=== PATIENT | female | born 1995 ===

== ENCOUNTER 2017-07-08 20:50 | Emergency (ER) | payer MEDICAID ==
[2017-07-08 20:58] VITALS: TEMP 98.4
--- NOTE | 2017-07-08 21:53 | ED PDOC ---
HPI: Psych/Substance Abuse Time Seen by Provider: 07/08/17 21:15 Chief Complaint (Nursing): Flu-like Symptoms Chief Complaint (Provider): Psychiatric Evaluation (Anxiety/Panic Attack) History Per: Patient, Family (Mother) History/Exam Limitations: no limitations Onset/Duration Of Symptoms: Hrs Current Symptoms Are (Timing): Still Present Associated Symptoms: Anxiety Additional Complaint(s): 21 year old female presents to the ED complaining of an anxiety/panic attack prior to arrival. Patient states she was preparing dinner tonight when she felt a sudden onset of heat throughout her body, shortness of breath, and chest/ throat tightness. Patient reports she felt as if she couldn't breath. Patient also reports she has been having panic attacks more frequently at about 4 times a week, that now are interfering with her sleeping. Saw PMD earlier in the year for same and was prescribed medication for anxiety. Patient's mother never filled the prescription. Patient's mother also states an extensive family history of anxiety. Patient states she is the middle of switching jobs and finishing up schooling, which has been causing her some stress. Patient reports she took Tylenol 500 mg prior to arrival. Most symptoms have resolved, but patient states she still feels "shaky". PMD: Dr. Hammond LNMP: 07/02/2017 Past Medical History Reviewed: Historical Data, Nursing Documentation, Vital Signs Vital Signs: Last Vital Signs Temp 98.4 F 07/08/17 20:55 Pulse 89 07/08/17 20:55 Resp 16 07/08/17 20:55 BP 156/89 H 07/08/17 20:55 Pulse Ox 98 07/08/17 20:55 - Medical History PMH: Anxiety - Surgical History Surgical History: No Surg Hx - Family History Family History: States: Unknown Family Hx - Home Medications Home Medications: Ambulatory Orders Medication Instructions Recorded Nitrofurantoin Macrocrystals 100 mg PO BID #10 cap 04/26/16 [Macrobid] - Allergies Allergies/Adverse Reactions: Allergies Allergy/AdvReac Type Severity Reaction Status Date / Time No Known Allergies Allergy Verified 04/26/16 13:47 Review of Systems ROS Statement: Except As Marked, All Systems Reviewed And Found Negative Respiratory: Positive for: Shortness of Breath, Other (chest tightness, dyspnea ) Psych: Positive for: Anxiety Physical Exam - Reviewed Nursing Documentation Reviewed: Yes Vital Signs Reviewed: Yes - Physical Exam Comments: GENERAL APPEARANCE: Patient is awake, alert, oriented x 3, anxious appearing, tearful. SKIN: Warm, dry; (-) cyanosis HEAD: (-) scalp swelling, (-) scalp tenderness. EYES: (-) conjunctival pallor, (-) scleral icterus, (-) nystagmus. ENMT: Mucous membranes moist. Airway patent: (-) stridor. Pharynx: clear (-) swelling. Uvula midline. (-) stridor (-) drooling. NECK: Supple, FROM (-) tenderness, (-) stiffness, (-) lymphadenopathy. CHEST AND RESPIRATORY: (-) rales, (-) rhonchi, (-) wheezes; breath sounds equal. Speaking in full sentences, respirations even and nonlabored. ABDOMEN: Soft, (-) distention, (-) tenderness, (-) guarding. NEURO AND PSYCH: Mental status as above. Affect: Calm and cooperative. epic professional: Intact. Pupils equal and reactive; EOMI; (-) facial asymmetry; tongue and uvula midline. Strength and sensation symmetric. - ECG O2 Sat by Pulse Oximetry: 98 (RA) Pulse Ox Interpretation: Normal Medical Decision Making Medical Decision Making: Clinical Impression: Panic Attack Plan: Time: 2150 Patient offered to speak with crisis. Patient declined and states she will speak to PMD, Dr. Hammond, because he is aware of the problem already. -Xanax PO -Rapid Strep (requested by mother) -Influenza (requested by mother) -Re-evaluation 2309 On re-evaluation, patient reports improvement of symptoms and resolution of presenting symptoms. On exam, patient remains AAOx3, in no acute distress. On exam, neck is supple, lungs CTA, cardiac RRR, abdomen is soft and non-tender, neuro exam shows no focal findings. Repeat BP:125/70. Repeat HR: 68. Diagnostic results d/w the patient in great detail. Dx of panic attack, anxiety d/w the patient. Based on history, exam and diagnostic results plan will be for outpatient follow up. Advised to follow up with primary care physician in 1-2 days without fail. Advised to take medication as prescribed. Return to the emergency room at any time for any new or worsening symptoms. Patient states she fully agrees with and understands discharge instructions. States that she agrees with the plan and disposition. Verbalized and repeated discharge instructions and plan. I have given the patient opportunity to ask any additional questions. Scribe Attestation: Documented by Sharon Russ, acting as a scribe for Martina Reyes PA-C. Provider Scribe Attestation: All medical record entries made by the Scribe were at my direction and personally dictated by me. I have reviewed the chart and agree that the record accurately reflects my personal performance of the history, physical exam, medical decision making, and the department course for this patient. I have also personally directed, reviewed, and agree with the discharge instructions and disposition. Disposition - Clinical Impression Clinical Impression: Panic attack - Patient ED Disposition Is Patient to be Admitted: No Counseled Patient/Family Regarding: Studies Performed, Diagnosis, Need For Followup - Disposition Referrals: Tyson Hammond MD [Staff Provider] - Disposition: Routine/Home Disposition Time: 23:07 Condition: GOOD Instructions: Panic Disorder, Anxiety, Adult (DC) Forms: [employer] (Indonesian) Print Language: LUXEMBOURGISH - POA Present On Arrival: None Results - Lab Results Lab Results: 07/08/17 07/08/17 22:20 22:20 Influenza Typ A,B (EIA) Negative for flu a/b Grp A Beta Strep Ag Negative
[2017-07-08 23:22] VITALS: BP 125/70; PULSE 68; RESP 17
[2017-07-10 10:48] VITALS: O2SAT 98
== END 2017-07-08 23:22 | disposition home or self-care (01) ==
LOC: H.ER 20:50
DX: F41.0 Panic disorder [episodic paroxysmal anxiety] (principal)